=== PATIENT | male | born 1980 | race African-American/Black ===

== ENCOUNTER 2022-03-28 19:28 | Emergency (ER) | payer MEDICAID ==
[~2022-03-28] VITALS: Ht 175.3 cm; Wt 98.0 kg
[2022-03-28 19:34] VITALS: BP 150/91
[2022-03-28 20:55] LABS: CLARITY URINE CLEAR (CLEAR); COLOR URINE DARK YELLOW (YELLOW); KETONES URINE TRACE (NEGATIVE); LEUKOCYTE ESTERASE URINE NEGATIVE (NEGATIVE); NITRITE URINE NEGATIVE (NEGATIVE); OCCULT BLOOD URINE 1+ (NEGATIVE); PH URINE 5.5 (4.5-8.0); PROTEIN URINE 2+ (NEGATIVE); SPECIFIC GRAVITY URINE 1.038 (1.005-1.030)
== END 2022-03-28 22:21 | disposition left against medical advice (07) ==
LOC: ER 19:28
DX: Z53.21 Procedure and treatment not carried out due to patient leaving prior to being seen by health care provider (principal); R10.9 Unspecified abdominal pain; R00.0 Tachycardia, unspecified
CPT/HCPCS: 81003; 93005